=== PATIENT | female | born 1955 | race Caucasian/White ===

== ENCOUNTER 2017-05-30 22:33 | Inpatient (IN) | payer MEDICARE ==
[~2017-05-30] VITALS: Ht 175.3 cm; Wt 84.5 kg
[~2017-05-30 22:33] MED LIST: AMBIEN10 MG PO; CELEBREX100 MG PO; CHLORPHENIRAMINE4 MG; CLOBETASOL PROP50 ML TP; CLOTRIMAZOLE-BE15 GM; CYANOCOBAL1000 MCG/1 IJ; CYANOCOBAL1000 MCG/M IM; ENBREL50 MG/1 M1 SQ; ENBREL50 MG/1 ML SQ; ESTRADIOL PO; ESTRADIOL2 MG PO; EVOXAC30 MG PO; FLONASE16 GM; FLOXIN OU; FLUTICASONE PRO16 GM; HYDROCHLOROTHIA25 MG PO; HYDROXYZINE HCL25 MG PO; KEPPRA1000 MG PO; METHOTREXATE PO; METHOTREXATE2.5 MG PO; METRONIDAZOLE TOP; MINOCYCLINE HCL50 MG PO; NEXIUM40 MG PO; NORCO 7.5-3251 EACH PO; PHENERGAN SUPP25 MG PR; PHENYLEPHRINE; PILOCARPINE HCL5 MG PO; PREDNISONE1 MG PO; PREDNISONE5 MG PO; RAMIPRIL5 MG PO; SERTRALINE HCL100 MG PO; TYLENOL WITH C1 EACH PO; VENTOLIN HFA18 GM INH; Z.0.AMBIEN10 MG PO; Z.0.AMLODIPINE BESY1 PO; Z.0.DICYCLOMINE HCL1 PO; Z.0.GABAPENTIN300 MG PO; Z.0.HYDROCHLOROTHIA2 PO; Z.0.NEXIUM40 MG PO; Z.0.PREDNISONE5 M1 PO; Z.0.RAMIPRIL5 MG PO; Z.0.SERTRALINE HCL10 PO; ZYRTEC10 M3 PO
[2017-05-30] MEDS ORDERED: ASPIRIN 325 MG TAB PO ONE (23:45)
[2017-05-31] VITALS: BP 113/63
[2017-05-31] MEDS: MORPHINE SULFATE 2 MG/ML SYR IV PRN ×4 (01:15→18:04)
[2017-05-31 01:23] VITALS: BP 113/63
[2017-05-31 01:55] LABS: CHOL/HDL RATIO 4.1 (3.0-3.6)
[2017-05-31 02:01] LABS: CREATINE KINASE MB 8.3 ng/mL (0-5.0)
[2017-05-31] MEDS ORDERED: PROMETHAZINE 12.5MG/ NACL 0.9% 12.5 MG/50 ML BAG IV PRN (02:45)
[2017-05-31 04:00] VITALS: BP 97/57
[2017-05-31] MEDS: HEPARIN 25,000U/0.45% NS 250ML 25,000 UNIT in SODIUM CHLORIDE 0.9% 250ML 0 ML IV SCH ×3 (04:20→12:30)
[2017-05-31 08:00] VITALS: BP 109/66
[2017-05-31] MEDS ORDERED: PANTOPRAZOLE 40 MG 10ML VIAL IV SCH (09:00)
[2017-05-31] MEDS: ASPIRIN 325 MG TAB PO SCH (09:18)
[2017-05-31 09:48] LABS: CREATINE KINASE MB 10.2 ng/mL (0-5.0)
[2017-05-31] MEDS ORDERED: NITROGLYCERIN 0.4 MG SUBL SL PRN (10:00)
[2017-05-31] MEDS ORDERED: ACETAMINOPHEN 325 MG TAB PO PRN (10:00)
[2017-05-31] MEDS ORDERED: HYDROCODONE/APAP 5MG-325MG TAB PO PRN (10:00)
[2017-05-31] MEDS ORDERED: RAMIPRIL 5 MG CAP PO SCH (10:30)
[2017-05-31 10:34] LABS: BASOPHILS # (AUTO) 0.1 (0.0-0.1); BASOPHILS % 0.6 % (0.0-1.0); EOSINOPHILS # (AUTO) 0.4 (0.0-0.4); EOSINOPHILS % 4.7 % (0.0-6.0); HEMATOCRIT 34.2 % (34.2-44.1); HEMOGLOBIN 11.2 g/dL (12.0-16.0); LYMPHOCYTES # (AUTO) 5.3 (1.0-3.2); MEAN CORPUSCULAR HEMOGLOBIN 28.7 pg (28-32); MEAN CORPUSCULAR HGB CONC 32.7 g/dL (31-35); MEAN CORPUSCULAR VOLUME 87.7 fL (81-99); MONOCYTES # (AUTO) 0.6 (0.2-0.8); MONOCYTES % 6.5 % (4.4-11.3); NEUTROPHILS % 31.9 % (38.7-80.0); PLATELET COUNT 235 x10e3/uL (140-360); RED CELL DISTRIBUTION WIDTH 14.9 % (11.7-14.4)
[2017-05-31 10:52] LABS: ALANINE AMINOTRANSFERASE 9 IU/L (0-55); ALBUMIN 2.6 g/dL (3.5-5.0); ALBUMIN/GLOBULIN RATIO 0.8 (0.8-2.0); ALKALINE PHOSPHATASE 106 IU/L (40-150); BLOOD UREA NITROGEN 9 mg/dL (7-26); BUN/CREATININE RATIO 11 (6-25); CALCIUM 8.9 mg/dL (8.4-10.2); CARBON DIOXIDE 19 mmol/L (22-29); CHLORIDE 109 mmol/L (98-107); EST GLOMERULAR FILTRATION RATE > 60 ML/MIN (60-); GLUCOSE 97 mg/dL (74-118); SODIUM 139 mmol/L (136-145)
--- NOTE | 2017-05-31 10:54 | Diagnostic Imaging Report ---
EXAMINATION: CHEST SINGLE (PORTABLE) INDICATION: \S\sob \[id number] \S\1000 COMPARISON: Detail including PA chest from 02/18/[address] abdomen and pelvis from 02/18/2016 FINDINGS: AP view TUBES and LINES: None. LUNGS: Lungs are well inflated. Lungs are clear. There is no evidence of pneumonia or pulmonary edema. PLEURA: No pleural effusion or pneumothorax. HEART AND MEDIASTINUM: Stable mild enlargement of the cardiac silhouette. Tortuous thoracic aorta. BONES AND SOFT TISSUES: No acute osseous lesion. Soft tissues are unremarkable. UPPER ABDOMEN: No free air under the diaphragm. IMPRESSION: Mild cardiomegaly without pulmonary decompensation. Signed by: Dr. Michelle Polanco M.D. on 05/31/2017 10:50 AM
[2017-05-31 11:14] LABS: LYMPHOCYTES % (MANUAL) 50 % (19-48); MONOCYTES % (MANUAL) 1 % (3.4-9.0); NEUTROPHILS % (MANUAL) 42 % (40-74)
[2017-05-31 11:15] LABS: ANISOCYTOSIS SLIGHT; PLATELET ESTIMATE ADEQUATE; PLATELET MORPHOLOGY COMMENT NORMAL; RBC MORPHOLOGY COMMENT NORMAL
[2017-05-31 12:00] VITALS: BP 104/51
[2017-05-31] MEDS: ONDANSETRON HCL INJ 2 MG/ML VIAL IV PRN ×2 (12:35→18:04)
--- NOTE | 2017-05-31 15:23 | History and Physical ---
CHIEF COMPLAINT: Chest pain. HISTORY OF PRESENT ILLNESS: This is a 61-year-old female with known history of hypertension who comes in as a direct admission from [facility] due to underlying chest pain that began yesterday morning. The patient reports that her chest pain began yesterday on the right side of the chest wall and radiated to the left chest wall to her left shoulder and arm. She reports the pain was excruciating and sharp in nature, 8/10. She had some associated vomiting and nausea, but denies any diaphoresis. The patient denies any other events. She denies any lightheadedness or dizziness. She reports having chest pain earlier this morning, but no palpitations. The patient reports having left heart catheterization approximately 3-5 years ago and was found to have negative findings and did not need any intervention. She did see Dr. Valentin as her blunger here in [place]. The patient is seen and evaluated at bedside. She is currently doing well. Vital signs are stable. Currently, denies any chest pain, but had chest pain earlier this morning. REVIEW OF SYSTEMS: Pertinent positives: Chest pain substernally with nausea and vomiting. Pertinent negatives: Denies any palpitations. Denies dysuria, hematuria, frequency, urgency, lightheadedness, dizziness, abdominal pain, headache, shortness of breath or any other complaints. The rest of the 14-point review of systems have been reviewed with the patient and are negative. ALLERGIES: PENICILLIN, SULFA, TAPE, XANAX. HOME MEDICATIONS: Protonix 40 mg daily, Promethazine, Altace 5 mg p.o. daily, Ambien 10 mg p.o. at bedtime as needed for sleep. PAST MEDICAL HISTORY: Hypertension, insomnia, hyperlipidemia, GERD. PAST SURGICAL HISTORY: Reports none. FAMILY HISTORY: Hypertension, diabetes. SOCIAL HISTORY: Denies smoking, drugs or any alcohol. Good social support. Lives in [place]. and has children. PHYSICAL EXAMINATION VITAL SIGNS: Temperature 97.7, pulse 72, respiratory rate 18, blood pressure 109/66, pulse oximetry 100% on room air . GENERAL: In no acute distress, alert and oriented x3, cooperative on examination. HEENT: Head is normocephalic, atraumatic. Eyes: Pupils equal, round and reactive to light bilaterally. Extraocular movements intact bilaterally. Throat with no evidence of erythema or exudates in the posterior pharynx. Has poor dentition. NECK: Supple with good range of motion. PULMONARY: Clear to auscultation bilaterally. No wheezing, no rales no rhonchi, no crackles appreciated. CARDIOVASCULAR: Positive S1 and S2, no murmurs, rubs or gallops appreciated. ABDOMEN: Soft, nondistended, nontender on palpation. Bowel sounds were present. MUSCULOSKELETAL: Strength 5/5 throughout, no evidence of musculoskeletal deficit on exam. SKIN: Intact. Warm to touch. Good capillary refill. EXTREMITIES: No edema. Good range of motion throughout. PSYCHIATRIC: Normal affect and mood. LABORATORY DATA: CBC: Has been ordered and pending. Chemistries: Ordered and pending. Coagulation: PTT is 41.7. CK is 160. CK MB 10.2. Troponin 3.1. Triglycerides 221, cholesterol 163, LDL 79, HDL 40. Microbiology: None. IMAGING: The patient had CT brain, noncontrast performed at the outside hospital that showed no acute intracranial findings. Chest x-ray was negative at the outside facility. ASSESSMENT 1. Chest pain, unstable angina with elevated troponin. 2. Hypertension. 3. Hyperlipidemia. 4. Insomnia. PLAN: At this time, she is on a heparin drip, low-dose SHILPA inhibitor, pain control, nitroglycerin p.r.n. Cardiology consultation. Resume same home medications. We are going to trend troponins. EKG is consistent with flipped T waves, likely has a cardiac event. She did have elevated D-dimer at the outside facility. I will order stat labs, CBC and chemistry as well as chest x-ray. If creatinine is stable, will get CT angiogram of the chest, rule out for PE. For prophylaxis, she is on a heparin drip. Will continue with same plan of care. Look at orders. Home medications are reconciled. Will follow cardiology recommendations. The patient will likely need left heart cath, likely will happen on Friday, but will follow cardiology recommendations otherwise. Job#: [id number]
[2017-05-31 20:00] VITALS: BP 108/59
[2017-05-31] MEDS: ATORVASTATIN 40 MG TAB PO SCH (20:57)
[2017-05-31] MEDS: LEVETIRACETAM 500 MG TAB PO SCH (21:22)
[2017-06-01] VITALS (7 sets, daily range): BP systolic 92–115; BP diastolic 51–58
[2017-06-01] MEDS: ZOLPIDEM TARTRATE 10 MG TAB PO PRN (00:15)
[2017-06-01 06:52] LABS: BASOPHILS % 0.6 % (0.0-1.0); EOSINOPHILS # (AUTO) 0.3 (0.0-0.4); EOSINOPHILS % 5.1 % (0.0-6.0); HEMATOCRIT 30.6 % (34.2-44.1); LYMPHOCYTES # (AUTO) 3.7 (1.0-3.2); LYMPHOCYTES % 56.4 % (18.0-39.1); MEAN CORPUSCULAR HEMOGLOBIN 28.3 pg (28-32); MEAN CORPUSCULAR HGB CONC 32.7 g/dL (31-35); MEAN CORPUSCULAR VOLUME 86.7 fL (81-99); MONOCYTES # (AUTO) 0.6 (0.2-0.8); MONOCYTES % 8.5 % (4.4-11.3); NEUTROPHILS # (AUTO) 1.9 (2.1-6.9); NEUTROPHILS % 29.1 % (38.7-80.0); PLATELET COUNT 212 x10e3/uL (140-360); RED BLOOD COUNT 3.53 x10e6/uL (3.6-5.1); RED CELL DISTRIBUTION WIDTH 14.9 % (11.7-14.4)
[2017-06-01 07:12] LABS: ANION GAP 11.3 mmol/L (8-16); BLOOD UREA NITROGEN 9 mg/dL (7-26); BUN/CREATININE RATIO 12 (6-25); CALCIUM 8.7 mg/dL (8.4-10.2); CARBON DIOXIDE 25 mmol/L (22-29); CHLORIDE 105 mmol/L (98-107); CHOL/HDL RATIO 3.5 (3.0-3.6); CHOLESTEROL 132 MD/DL (0-199); CREATININE, SERUM 0.73 mg/dL (0.57-1.11); EST GLOMERULAR FILTRATION RATE > 60 ML/MIN (60-); GLUCOSE 90 mg/dL (74-118); HDL CHOLESTEROL 38 MG/DL (40-60); LDL CHOLESTEROL 68 MG/DL (60-130); POTASSIUM 3.3 mmol/L (3.5-5.1); SODIUM 138 mmol/L (136-145); TRIGLYCERIDES 129 MG/DL (0-149)
[2017-06-01 07:32] LABS: THYROID STIMULATING HORMONE 1.106 uIU/mL (0.350-4.940)
[2017-06-01] MEDS: ASPIRIN 325 MG TAB PO SCH (09:29)
[2017-06-01] MEDS: LEVETIRACETAM 500 MG TAB PO SCH ×2 (09:29→17:22)
[2017-06-01] MEDS: PANTOPRAZOLE SOD 40 MG TABEC PO SCH (09:29)
[2017-06-01] MEDS ORDERED: POTASSIUM CHLORIDE 20 MEQ TAB CR PO NR (10:00)
[2017-06-01] MEDS: KCL 20MEQ/.9 SOD CHL 1,000 ML IV SCH (11:01)
[2017-06-01] MEDS: MORPHINE SULFATE 2 MG/ML SYR IV PRN (11:02)
[2017-06-01] MEDS: ONDANSETRON HCL INJ 2 MG/ML VIAL IV PRN (11:02)
[2017-06-01] MEDS: HEPARIN 25,000U/0.45% NS 250ML 25,000 UNIT in SODIUM CHLORIDE 0.9% 250ML 0 ML IV SCH (12:30)
[2017-06-01] MEDS ORDERED: HYDRALAZINE HCL 20 MG/ML VIAL IV PRN (14:30)
[2017-06-01] MEDS ORDERED: METOPROLOL TARTRATE INJ 1 MG/ML VIAL IV PRN (14:30)
[2017-06-01] MEDS ORDERED: NITROGLYCERIN 0.4 MG SUBL SL PRN (14:30)
[2017-06-01 17:12] LABS: PHOSPHORUS 3.8 MG/DL (2.3-4.7)
[2017-06-01] MEDS ORDERED: MAGNESIUM SULFATE 2GM/50ML 100 ML IV NR (18:30)
[2017-06-01 19:17] LABS: ALBUMIN 2.6 g/dL (3.5-5.0); ALBUMIN/GLOBULIN RATIO 0.8 (0.8-2.0); ALKALINE PHOSPHATASE 106 IU/L (40-150); ANION GAP 16.6 mmol/L (8-16); BLOOD UREA NITROGEN 9 mg/dL (7-26); BUN/CREATININE RATIO 11 (6-25); CALCIUM 8.6 mg/dL (8.4-10.2); CARBON DIOXIDE 17 mmol/L (22-29); CHLORIDE 107 mmol/L (98-107); CREATININE, SERUM 0.79 mg/dL (0.57-1.11); EST GLOMERULAR FILTRATION RATE > 60 ML/MIN (60-); GLUCOSE 102 mg/dL (74-118); POTASSIUM 3.6 mmol/L (3.5-5.1); SODIUM 137 mmol/L (136-145)
--- NOTE | 2017-06-01 19:23 | Diagnostic Imaging Report ---
History:Slurred speech Comparison studies:None Technique: Axial images were obtained from the skull base to the vertex. Coronal and sagittal images reconstructed from the axial data. Intravenous contrast: None Findings: Scalp/skull: No abnormalities. Extra-axial spaces: No masses. No fluid collections. Brain sulci: Mildly prominent. Ventricles: Mild compensatory dilatation. No hydrocephalus. Parenchyma: Ill-defined hypodensities in the supratentorial white matter are small vessel ischemic changes. No masses, hemorrhage, acute or chronic cortical vascular insults. Sellar/suprasellar region: No abnormalities. Craniocervical junction: Patent foramen magnum. No Chiari one malformation. Incidental findings: Atherosclerotic calcifications in the carotid siphons . Impression: No acute abnormalities. Chronic findings: 1. Mild generalized volume loss. 2. Mild supratentorial white matter small vessel ischemic changes. Signed by: Dr. Shilo Roach M.D. on 06/01/2017 7:19 PM
[2017-06-01 19:24] LABS: ALANINE AMINOTRANSFERASE < 6 IU/L (0-55)
[2017-06-01] MEDS: ATORVASTATIN 40 MG TAB PO SCH (21:35)
[2017-06-01 22:01] LABS: HEMATOCRIT 31.8 % (34.2-44.1); HEMOGLOBIN 10.4 g/dL (12.0-16.0); MEAN CORPUSCULAR HEMOGLOBIN 28.2 pg (28-32); MEAN CORPUSCULAR HGB CONC 32.7 g/dL (31-35); MEAN CORPUSCULAR VOLUME 86.2 fL (81-99); PLATELET COUNT 214 x10e3/uL (140-360); RED BLOOD COUNT 3.69 x10e6/uL (3.6-5.1); RED CELL DISTRIBUTION WIDTH 14.9 % (11.7-14.4)
[2017-06-02] VITALS (8 sets, daily range): BP systolic 99–121; BP diastolic 52–84
[2017-06-02] MEDS: KCL 20MEQ/.9 SOD CHL 1,000 ML IV SCH ×2 (00:40→12:55)
[2017-06-02] MEDS: MORPHINE SULFATE 2 MG/ML SYR IV PRN ×6 (00:41→23:18)
[2017-06-02] MEDS: ZOLPIDEM TARTRATE 10 MG TAB PO PRN ×2 (01:10→23:17)
[2017-06-02] MEDS: LEVETIRACETAM 500 MG TAB PO SCH ×2 (09:00→16:36)
[2017-06-02] MEDS: PANTOPRAZOLE SOD 40 MG TABEC PO SCH (09:00)
[2017-06-02] MEDS: ASPIRIN 325 MG TAB PO SCH (09:00)
[2017-06-02] MEDS: HEPARIN 25,000U/0.45% NS 250ML 25,000 UNIT in SODIUM CHLORIDE 0.9% 250ML 0 ML IV SCH (12:30)
[2017-06-02] MEDS ORDERED: LIDOCAINE HCL 2% LOCAL 20 ML VIAL ONE ×2 (12:52→14:09)
[2017-06-02] MEDS ORDERED: IOPAMIDOL 370 MG/ML 200 ML INFUS..BTL INJ ONE (12:52)
[2017-06-02] MEDS ORDERED: HEPARIN SOD/SOD CHLORIDE 2,000 ML ONE (12:52)
[2017-06-02] MEDS ORDERED: FENTANYL CITRATE/PF 100MCG/2 ML INJ ONE (14:10)
[2017-06-02] MEDS ORDERED: SODIUM CHLORIDE 0.9% 1000ML 1,000 ML ONE (14:11)
[2017-06-02] MEDS ORDERED: MIDAZOLAM HCL 2 MG/2 ML VIAL ONE (14:11)
--- NOTE | 2017-06-02 16:36 | Operative Report ---
DATE OF PROCEDURE: PROCEDURES 1. Left heart catheterization. 2. Selective coronary angiogram. 3. Left ventriculogram. INDICATION: Non-ST elevation IA. ANESTHESIA: 2% lidocaine for local anesthesia and 1 mg of Versed and 25 mcg of fentanyl for conscious sedation. BLOOD LOSS: 2 mL. DESCRIPTION OF PROCEDURE: After informed consent, the patient was brought to the cardiac catheterization laboratory and placed on the table. Both groins were painted and draped in a sterile fashion. Lidocaine was injected in the right groin for local anesthesia. Right femoral artery was accessed by Seldinger technique and a 5-Wallisian sheath was placed in the right femoral artery. Left main artery was cannulated using a JL4 5-Wallisian catheter. Coronary angiogram was performed and images obtained in multiple views. Right coronary artery was cannulated using a 3DRC 5-Wallisian catheter. Coronary angiogram was performed and images were obtained in multiple views. LV gram was performed using a pigtail catheter. Patient tolerated the procedure without any complications. REPORT Left main: Normal caliber and no significant stenosis noted. Left anterior descending: Normal caliber and no significant stenosis noted. Left circumflex: Normal caliber, is nondominant vessel, and has no luminal irregularities. Right coronary artery: Large caliber, dominant vessel, no significant stenosis noted. LV gram: Overall, normal LV function. Ejection fraction was about 60%. Morphology of the left ventricle looks more like Takotsubo. Hemodynamics: Aortic pressure is 116/58. LV pressure is 125/70. LVEDP is 20. PLAN: Medical management. Job#: [id number] VAS
[2017-06-02] MEDS ORDERED: ALPRAZOLAM 0.5 MG TAB PO ONE (17:00)
[2017-06-02] MEDS ORDERED: LORAZEPAM INJ 2 MG/ML VIAL IV ONE (17:15)
--- NOTE | 2017-06-02 18:58 | Diagnostic Imaging Report ---
EXAM: VENTILATION PERFUSION LUNG SCAN INDICATION: 62 F with elevated D-dimer, NSTEMI, chest pain, spinal fusion 2 weeks ago. COMPARISON: Chest radiograph 05/31/2017 DISCUSSION: Xenon-133 gas 13 mCi was administered via inhalation. Dynamic images of the lungs in the posterior projection were obtained through single breath and washout phases. Distribution of tracer activity is mildly irregular throughout the lungs. Washout is diffusely delayed without evidence of air trapping. Perfusion images of the lungs in multiple projections were obtained following intravenous administration of 6.6 mCi of Tc-99m MAA. Distribution of tracer is mildly irregular throughout the lungs. There are no segmental perfusion defects of any size. The contours of the lungs are well demarcated. The cardiac silhouette is unremarkable. IMPRESSION: 1. Scan findings represent a VERY LOW probability for acute pulmonary embolic disease based on the PIOPED II criteria. 2. Scan findings are compatible with diffuse parenchymal and/or obstructive lung disease. Signed by: Dr. Bozena Walsh M.D. on 06/02/2017 6:54 PM
[2017-06-02] MEDS: ATORVASTATIN 40 MG TAB PO SCH (22:07)
[2017-06-03] VITALS (8 sets, daily range): BP systolic 101–132; BP diastolic 52–68
[2017-06-03] MEDS: KCL 20MEQ/.9 SOD CHL 1,000 ML IV SCH (02:07)
[2017-06-03] MEDS: MORPHINE SULFATE 2 MG/ML SYR IV PRN (03:29)
[2017-06-03] MEDS: ONDANSETRON HCL INJ 2 MG/ML VIAL IV PRN (03:30)
[2017-06-03 06:55] LABS: BASOPHILS % 0.4 % (0.0-1.0); EOSINOPHILS # (AUTO) 0.4 (0.0-0.4); EOSINOPHILS % 6.6 % (0.0-6.0); HEMATOCRIT 30.4 % (34.2-44.1); HEMOGLOBIN 9.7 g/dL (12.0-16.0); LYMPHOCYTES # (AUTO) 3.6 (1.0-3.2); LYMPHOCYTES % 54.3 % (18.0-39.1); MEAN CORPUSCULAR HEMOGLOBIN 28.4 pg (28-32); MEAN CORPUSCULAR HGB CONC 31.9 g/dL (31-35); MEAN CORPUSCULAR VOLUME 88.9 fL (81-99); MONOCYTES # (AUTO) 0.5 (0.2-0.8); MONOCYTES % 6.9 % (4.4-11.3); NEUTROPHILS # (AUTO) 2.1 (2.1-6.9); NEUTROPHILS % 31.7 % (38.7-80.0); PLATELET COUNT 228 x10e3/uL (140-360); RED BLOOD COUNT 3.42 x10e6/uL (3.6-5.1); RED CELL DISTRIBUTION WIDTH 15.2 % (11.7-14.4)
[2017-06-03 07:15] LABS: ANION GAP 13.8 mmol/L (8-16); BLOOD UREA NITROGEN 5 mg/dL (7-26); BUN/CREATININE RATIO 7 (6-25); CALCIUM 8.8 mg/dL (8.4-10.2); CARBON DIOXIDE 20 mmol/L (22-29); CHLORIDE 112 mmol/L (98-107); CREATININE, SERUM 0.68 mg/dL (0.57-1.11); EST GLOMERULAR FILTRATION RATE > 60 ML/MIN (60-); GLUCOSE 87 mg/dL (74-118); POTASSIUM 3.8 mmol/L (3.5-5.1); SODIUM 142 mmol/L (136-145)
[2017-06-03] MEDS: ASPIRIN 325 MG TAB PO SCH (08:40)
[2017-06-03] MEDS: LEVETIRACETAM 500 MG TAB PO SCH ×2 (08:40→17:07)
[2017-06-03] MEDS: PANTOPRAZOLE SOD 40 MG TABEC PO SCH (08:40)
[2017-06-03] MEDS: ACETAMINOPHEN/CODEINE 300MG - 30MG TAB PO PRN ×3 (10:16→20:02)
[2017-06-03] MEDS: ATORVASTATIN 40 MG TAB PO SCH (20:02)
[2017-06-04 00:12] VITALS: BP 119/57
[2017-06-04] MEDS: ZOLPIDEM TARTRATE 10 MG TAB PO PRN (00:27)
[2017-06-04] MEDS: ACETAMINOPHEN/CODEINE 300MG - 30MG TAB PO PRN ×2 (01:40→08:30)
[2017-06-04 05:11] VITALS: BP 94/51
[2017-06-04 07:30] VITALS: BP 105/57
[2017-06-04 08:04] VITALS: BP 105/57
[2017-06-04] MEDS: PANTOPRAZOLE SOD 40 MG TABEC PO SCH (08:30)
[2017-06-04] MEDS: LEVETIRACETAM 500 MG TAB PO SCH (08:30)
[2017-06-04] MEDS: ASPIRIN 325 MG TAB PO SCH (08:30)
--- NOTE | 2017-06-04 09:58 | Discharge Summary ---
FINAL DISCHARGE DIAGNOSES 1. [id number] elevation myocardial infarction, status post left heart cath with no intervention needed. Recommended medical management. 2. Hypertension. 3. Hyperlipidemia. 4. Sjogren's syndrome. 5. Takotsubo heart. CONSULTANTS: Neurology and cardiology. VITAL SIGNS: Temperature is 96.5, pulse 55, respiratory rate is 16, BP 105/57, pulse ox 99% on room air. LAB FINDINGS: Show white count is 6.6, hemoglobin 9.7, hematocrit is 30, platelets of 228,000. Chemistry: Sodium 1402, potassium 3.8, chloride 112, bicarb 20, anion gap of 13, BUN is 5, creatinine 0.6, glucose is 87. A1c is 4.9. Uric acid 7.5. Calcium is 8.8. Phosphorus 3.8. LFTs were normal. Total protein 5.7. Her LDL cholesterol was 68. TSH was 1.1. IMAGING STUDIES: Chest x-ray showed some mild cardiomegaly without any pulmonary decompensation. CT of brain showed no acute abnormalities. V/Q scan represents a very low probability for acute pulmonary embolic disease. There was some evidence of some compatible with diffuse parenchymal and/or obstructive lung disease. Otherwise, negative for any PE. MRI unable to perform as the machine was not available and was not working while she was here. HOSPITAL COURSE: This is a 62-year-old female who came in from an outside ER due to chest pain, and found have elevated troponin, as well as D-dimer. Patient had a V/Q scan and the patient was transferred here for higher level of care. The patient had a V/Q scan and found to be low probability for any PE. While here, the patient was on heparin drip, aspirin and cardioprotective meds. Cardiology was consulted. Patient had a left heart cath performed on June 02, 2017, that showed normal coronaries and no intervention was needed, and which she had an EF of 60%. It was felt based on his report that the morphology of the left ventricle looks more like Takotsubo's and only recommended medical management at this time. Patient was then stopped on heparin drip and continued on cardioprotective meds per cardiology recommendations. Patient was cleared by cardiology. While in the hospital, the patient did develop a rapid response. There was some concern of her fingers looking kind of white in appearance with some vasoconstriction, and also had an episode where it seems that she had vasovagal while she was on the toilet. Patient had a stat CT brain which was negative. Neurology was consulted and recommended MRI of the brain. At this time, the MRI machine was not available and was not working, and unsure when the availability of the machine will be functional. At this time, the family agreed to be discharged home and follow with Dr. Davis, neurology, as an outpatient and arrange it as an outpatient at that time. Neurology also cleared the patient for discharge home. On discharge, she had no more symptoms of her fingers being white or any kind of abnormalities neurologically. Patient was cleared by neurology for discharge home. On the day of discharge, vital signs stable, labs reviewed and stable. The patient was seen, evaluated and examined thoroughly on the day of discharge. No other complaints. Patient verbalized understanding and agrees with plan of care to follow up with neurology, as well as cardiology in the next 1-2 weeks. Also, follow with her PCP in 1 week. MEDICATIONS: See med reconciliation form includin. Aspirin 81 mg daily 1 tab p.o. daily. 2. Lipitor 40 mg 1 tab p.o. daily. DISPOSITION: To home. CONDITION: Stable. DIET: Heart-healthy. 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 In the event of any worsening symptoms, the patient was advised to come back to the ED for further evaluation. Discharge summary took greater than 35 minutes. KEYLA SPENCER MD Job#: [id number] [place]
--- NOTE | 2017-06-04 11:24 | Consultation ---
DATE OF CONSULTATION: June 02, 2017 at 5 p.m. NEUROLOGICAL CONSULTATION REASON FOR CONSULTATION: Paleness, coldness of fingers of both hands associated with some slurred speech. This has been going on for the last couple of months on an off and on basis. The patient was brought to the emergency room because of chest pain. In the ER, the evaluation showed the troponin level was elevated. D-dimer was elevated. There were some changes in electrocardiogram that were compatible with infarction. The patient was seen by cardiology, Dr. Barrios, who performed cardiac catheterization. Apparently, there was not any significant blockage. The patient, as stated, has been lately having episode of swollen fingers and became pale, both hands cold associated with some confusion and associated with slurred speech and mild headache. She underwent just recently lumbar fusion and still with chronic pain, but doing better. PAST MEDICAL HISTORY: Hypertension, hyperlipidemia, iron deficiency, anemia, B12 deficiency, rheumatoid arthritis. MEDICATIONS: List of medications has been reviewed. PAST SURGICAL HISTORY: Cervical anterior fusion, hysterectomy, knee surgery and recent lumbar fusion. ALLERGIES: PENICILLIN, XANAX, SULFA. REVIEW OF SYSTEMS: All 12 steps negative, except for what is described above. PHYSICAL EXAMINATION VITAL SIGNS: Blood pressure 121/57, pulse 58, temperature afebrile. LUNGS: Clear to auscultation. HEART: Regular sinus rhythm with no murmurs. ABDOMEN: Soft and nontender. No organomegaly. MUSCULOSKELETAL: Lower extremities with no edema or cyanosis, no clubbing. There is paleness of the fingers of both hands and a little bit cold. Radial pulses are normal bilaterally. NEURO: She is alert, oriented x3. Speech is clear. No dysarthria or dysphagia at the present time. Cranial nerves: Pupils are both equal and reactive. Extraocular movements were full. Visual field was normal. No facial weakness. Facial sensation normal. Tongue protrudes midline. Motor power: Upper and lower extremities show no evidence of muscle wasting. Abduction of the arm 5/5. Flexion, extension both arms 5/5. Dorsiflexion of both wrists 5/5. Finger extension 5/5 bilaterally. Hand project hire 5/5 bilaterally. Lower extremities: No right leg examination because the patient just had a cardiac cath and recommend not to move the right leg. There is no evidence of gross weakness in either proximal or distal muscles of both lower extremities. Plantar stimulation down bilaterally. Radial pulses are normal. Femoral pulses normal. Gait was deferred. HEAD: Normocephalic. NECK: Supple. Normal range of motion. Carotid pulsations were present bilaterally. There were no bruits. IMPRESSION 1. Chest pain, coronary artery disease, myocardial infarction. 2. Essential hypertension. 3. Hyperlipidemia. 4. Slurred speech, unspecified. 5. Fingers of both hands cold, pale, etiology undetermined, rule out collagen disease. RECOMMENDATIONS: The patient has been scheduled for MRI of the brain without contrast, but has not been able to do that, so it is going to be done on the following day with Ativan 1-2 mg IV. Also, the patient has history of seizures, generalized tonic/clonic type for a while and she is taking 1000 mg twice a day. Job#: [id number] BRENDA
[2017-06-04 11:40] VITALS: BP 115/57
== END 2017-06-04 11:54 | disposition home or self-care (01) | DRG 281 ==
LOC: MED/SURG3 22:33
PROVIDERS: ADMIT Internal Medicine; ATTEND Internal Medicine
PROC: 4A023N7 Measurement of Cardiac Sampling and Pressure, Left Heart, Percutaneous Approach (ICD-10-PCS; principal; 2017-06-02)
PROC: B2111ZZ Fluoroscopy of Multiple Coronary Arteries using Low Osmolar Contrast (ICD-10-PCS; 2017-06-02)
PROC: B2151ZZ Fluoroscopy of Left Heart using Low Osmolar Contrast (ICD-10-PCS; 2017-06-02)
DX: I21.4 Non-ST elevation (NSTEMI) myocardial infarction (principal); I51.81 Takotsubo syndrome; E53.8 Deficiency of other specified B group vitamins; I10 Essential (primary) hypertension; E87.6 Hypokalemia; E83.42 Hypomagnesemia; E78.5 Hyperlipidemia, unspecified; D50.9 Iron deficiency anemia, unspecified; Z98.1 Arthrodesis status; R55 Syncope and collapse; M35.00 Sjogren syndrome, unspecified; R47.81 Slurred speech; G47.00 Insomnia, unspecified; K21.9 Gastro-esophageal reflux disease without esophagitis; I73.00 Raynaud's syndrome without gangrene; Z88.0 Allergy status to penicillin; Z88.2 Allergy status to sulfonamides; Z88.8 Allergy status to other drugs, medicaments and biological substances; Z91.048 Other nonmedicinal substance allergy status
CPT/HCPCS: 36140; 36415; 70450; 71045; 77002; 78582; 80048; 80053; 80061; 82306; 82550; 82553; 82948; 83036; 83735; 84100; 84443; 84484; 84550; 85007; 85025; 85027; 85651; 85730; 93005; 93306; A9540; A9558; J1644; J2001; J2250; J2270; J2405; J7030; J7050; Q9967

== ENCOUNTER 2017-08-04 14:16 | Inpatient (IN) | payer MEDICARE, OTHER ==
[~2017-08-04] VITALS: Ht 175.3 cm; Wt 78.9 kg
--- OUTSIDE RECORDS SUMMARY | 2017-08-04 14:19 | XMS REPORT | Continuity of Care Document ---
Author Author [facility] Organization [facility] Address [address] [place] [place] [address] Phone Unavailable Care Team Providers Care Fingerprint Classifier Name Role Phone SEVERINO BAZAN (NON STAFF) PCP Insurance Providers Guarantor Linsey Palacios Address [address] [place] [address] CELL Email [email or web address] Payer [employer] Policy Number [id number] Subscriber's Name Linsey Palacios Relationship 18 Self / Same As Patient Group Number [id number] Group Name RETIRED Effective Date 15 Payer Aetna Pos Policy Number [id number] Subscriber's Name Grover Castillo Relationship 01 Group Number [id number] Group Name [facility] Effective Date 03 Advance Directives Directive Response Recorded Date/Time Does the patient have an advance directive? No 05/31/17 3:56am If yes, is advance directive on file with [facility]? No 03/03/18 3:56am If not on file with [facility] will patient provide a copy? Yes 05/31/17 3:56am Do you have a Directive to Physician? No 05/30/17 10:30pm Do you have a Medical Power of Training Personnel Supervisor? No 05/30/17 10:30pm Do you have an out of hospital Do Not Resuscitate Order? No 05/30/17 10:30pm Do you have any special needs we should be aware of? No 05/30/17 10:30pm Do you have a support person here with you today? No 05/30/17 10:30pm Did patient receive Notice of Privacy Practices? Yes 05/30/17 10:30pm Did patient receive patient rights and responsibilities? Yes 05/30/17 10:30pm Problems No problem information available. Medications Current Home Medications Medication Dose Units Route Directions Days Qty Instructions Start Date Cevimeline Hcl (Evoxac) 30 Mg Capsule 30 Mg Oral Three Times A Day Cyanocobalamin (Cyanocobalamin Injection) 1,000 Mcg/Ml Soln 1,000 Mcg Intramusc Every Friday Esomeprazole Magnesium (Nexium) 40 Mg Capsule.dr 40 Mg Oral Daily PROTONIX THERAPEUTIC SUBSTITUTE FOR NEXIUM PER [facility] Estradiol 2 Mg Tablet 2 Mg Oral Daily Levetiracetam (Keppra) 1,000 Mg Tablet 1,000 Mg Oral Twice A Day Metronidazole Lotion 0.75 % Topically Twice A Day Pilocarpine Hcl 5 Mg Tablet 5 Mg Oral Three Times A Day Promethazine Hcl (Phenergan Supp*) 25 Mg Supp 25 Mg Rectal Every 6 Hours as needed for Nausea And Vomiting Ramipril 5 Mg Capsule 5 Mg Oral Daily Zolpidem Tartrate (Ambien) 10 Mg Tablet 10 Mg Oral At Bedtime Past Home Medications Medication Directions Ordered Status Acetaminophen With Codeine (Tylenol With Codeine #3 Tablet) 1 Each Tablet, 300 Mg Oral Every 6 Hours as needed for Pain Discontinued Albuterol Sulfate (Ventolin Hfa) 18 Gm Hfa.aer.ad, 2 Inh Inhalation Every 4 Hours as needed for Shortness Of Breath Discontinued Amlodipine Besylate 10 Mg Tablet, 10 Mg Oral Daily Discontinued Celecoxib (Celebrex*) 100 Mg Capsule, 200 Mg Oral Daily Discontinued Clobetasol Propionate 50 Ml Solution, 1 Dose Topical Twice A Day Discontinued Dicyclomine Hcl 10 Mg Capsule, 10 Mg Oral Before Meals Discontinued Etanercept (Enbrel) 50 Mg/1 Ml Pen.injctr, 50 Mg Sub-Q .tuesdays Discontinued Fluticasone Propionate 16 Gm [place].susp, 1 Dose Nasal Daily Discontinued Gabapentin 300 Mg Capsule, 300 Mg Oral Three Times A Day Discontinued Hydrochlorothiazide 25 Mg Tablet, 25 Mg Oral Daily Discontinued Hydroxyzine Hcl 25 Mg Tablet, 25 Mg Oral Every 6 Hours as needed for Itching Discontinued Methotrexate Sodium (Methotrexate) 2.5 Mg Tablet, 5 Mg Oral .every Friday Discontinued Minocycline Hcl 50 Mg Capsule, 100 Mg Oral Twice A Day Discontinued Prednisone 5 Mg Tablet, 5 Mg Oral Daily Discontinued Sertraline Hcl 100 Mg Tablet, 100 Mg Oral At Bedtime Discontinued Social History Social History Problem Response Recorded Date/Time Onset Date Status Hx Psychiatric Problems No 05/31/2017 3:56am Not Applicable Not Applicable Hx Eating Disorder No 05/31/2017 3:56am Not Applicable Not Applicable Hx Substance Use Disorder No 05/31/2017 3:56am Not Applicable Not Applicable Hx Depression No 05/31/2017 3:56am Not Applicable Not Applicable Hx Alcohol Use No 05/31/2017 3:56am Not Applicable Not Applicable Hx Substance Use Treatment No 05/31/2017 3:56am Not Applicable Not Applicable Hx Physical Abuse No 05/31/2017 3:56am Not Applicable Not Applicable Smoking Status Start Date Stop Date Never Smoker Hospital Discharge Instructions No hospital discharge instruction information available. Plan of Care Discharge Date 06/04/17 11:54am Disposition HOME, SELF-CARE Instructions/Education Provided Chest Pain - Chest Wall Prescriptions See Medication Section Referrals MONIQUE CAZARES MD (Neurology) Order Date: 1 Week Entered Date: 06/04/2017 10:56am Address: [address] [place] [address] [address] [place] [address] SEVERINO ELIZONDO MD (Cardiology) Order Date: 1 Week Entered Date: 06/04/2017 11:05am Address: [address] [place] [address] [address] [place] [address] Functional Status Query Response Date Recorded Assistive Devices None May 31, 2017 1:23am Ambulation Ability Standby Assistance May 31, 2017 1:23am Toileting Ability Minimum Assistance June 03, 2017 6:41pm Allergies, Adverse Reactions, Alerts Allergen Type Severity Reaction Status Last Updated Penicillin Allergy Severe ANAPHYLACTIC SHOCK Active 08/12/11 Sulfa (Sulfonamide Antibiotics) Allergy Unknown REDNESS, PEELING Active Alprazolam Allergy Unknown ALTERED MENTAL STATUS Active 02/18/16 TAPE Allergy Intermediate Active 02/18/16 Immunizations No immunization information available. Vital Signs Acute Vital Signs Vital Response Date/Time Temperature (Fahrenheit) 97.9 degrees F (97.6 - 99.5) 06/04/2017 11:40am Pulse Pulse Rate (adult) 63 bpm (60 - 90) 06/04/2017 11:40am Respiratory Rate 16 bpm (12 - 24) 06/04/2017 11:40am Blood Pressure 115/57 mm Hg 06/04/2017 11:40am Height 5 ft 9 in 05/31/2017 2:47am Weight 186.25 lb 06/02/2017 5:23am Body Mass Index 27.5 kg/m^2 06/02/2017 5:23am Results Laboratory Results Test Name Result Units Flags Reference Collection Date/Time Result Date/ Time Comments White Blood Count 6.69 x10e3/uL 4.8-10.8 06/03/2017 6:27am 06/03/2017 7 :02am Red Blood Count 3.42 x10e6/uL L 3.6-5.1 06/03/2017 6:27am 06/03/2017 7: 02am Hemoglobin 9.7 g/dL L 12.0-16.0 06/03/2017 6:27am 06/03/2017 7:02am Hematocrit 30.4 % L 34.2-44.1 06/03/2017 6:27am 06/03/2017 7:02am Mean Corpuscular Volume 88.9 fL 81-99 06/03/2017 6:27am 06/03/2017 7: 02am Mean Corpuscular Hemoglobin 28.4 pg 28-32 06/03/2017 6:27am 06/03/2017 7:02am Mean Corpuscular Hemoglobin Concent 31.9 g/dL 31-35 06/03/2017 6:27am 06/03/2017 7:02am Red Cell Distribution Width 15.2 % H 11.7-14.4 06/03/2017 6:27am 2017 7:02am Platelet Count 228 x10e3/uL 140-360 06/03/2017 6:27am 06/03/2017 7: 02am Neutrophils (%) (Auto) 31.7 % L 38.7-80.0 06/03/2017 6:am 06/03/2017 7 :02am Lymphocytes (%) (Auto) 54.3 % H 18.0-39.1 06/03/2017 6:am 06/03/2017 7 :02am Monocytes (%) (Auto) 6.9 % 4.4-11.3 06/03/2017 6:am 06/03/2017 7: 02am Eosinophils (%) (Auto) 6.6 % H 0.0-6.0 06/03/2017 6:am 06/03/2017 7: 02am Basophils (%) (Auto) 0.4 % 0.0-1.0 06/03/2017 6:06/03/2017 7:02am IM GRANULOCYTES % 0.1 % 0.0-1.0 06/03/2017 6:06/03/2017 7:02am Neutrophils # (Auto) 2.1 2.1-6.9 06/03/2017 6:am 06/03/2017 7:02am Lymphocytes # (Auto) 3.6 H 1.0-3.2 06/03/2017 6:am 06/03/2017 7: 02am Monocytes # (Auto) 0.5 0.2-0.8 06/03/2017 6:am 06/03/2017 7:02am Eosinophils # (Auto) 0.4 0.0-0.4 06/03/2017 6:am 06/03/2017 7:02am Basophils # (Auto) 0.0 0.0-0.1 06/03/2017 6:am 06/03/2017 7:02am Absolute Immature Granulocyte (auto 0.01 x10e3/uL 0-0.1 06/03/2017 6: 06/03/2017 7:02am Differential Total Cells Counted 100 05/31/2017 10:25am 05/31/2017 11:15am Neutrophils % (Manual) 42 % 40-74 05/31/2017 10:25am 05/31/2017 11: 15am Lymphocytes % (Manual) 50 % H 19-48 05/31/2017 10:25am 05/31/2017 11: 15am Monocytes % (Manual) 1 % L 3.4-9.0 05/31/2017 10:25am 05/31/2017 11: 15am Reactive Lymphocytes 7 05/31/2017 10:25am 05/31/2017 11:15am Platelet Estimate ADEQUATE 05/31/2017 10:25am 05/31/2017 11:15am Platelet Morphology Comment NORMAL 05/31/2017 10:25am 05/31/2017 11 :15am Anisocytosis SLIGHT 05/31/2017 10:25am 05/31/2017 11:15am Red Cell Morphology Comment NORMAL 05/31/2017 10:25am 05/31/2017 11 :15am Erythrocyte Sedimentation Rate 14 mm/hr 0-20 2017 4:40pm 2017 6:12pm Activated Partial Thromboplast Time 64.2 seconds H 23.8-35.5 2017 6 :45pm 2017 7:30pm Sodium Level 142 mmol/L 136-145 06/03/2017 6:27am 06/03/2017 7:16am Potassium Level 3.8 mmol/L 3.5-5.1 06/03/2017 6:27am 06/03/2017 7:16am Chloride Level 112 mmol/L H 98-107 06/03/2017 6:27am 06/03/2017 7:16am Carbon Dioxide Level 20 mmol/L L 22-29 06/03/2017 6:27am 06/03/2017 7: 16am Anion Gap 13.8 mmol/L 8-16 06/03/2017 6:27am 06/03/2017 7:16am Blood Urea Nitrogen 5 mg/dL L 7-06/03/2017 6:27am 06/03/2017 7:16am Creatinine 0.68 mg/dL 0.57-1.11 06/03/2017 6:27am 06/03/2017 7:16am BUN/Creatinine Ratio 7 6-06/03/2017 6:27am 06/03/2017 7:16am Estimat Glomerular Filtration Rate > 60 ML/MIN 60- 06/03/2017 6:27am 7:16am Ranges were taken from the National Kidney Disease Education Program and the National Kidney Foundation literature. Reference ranges: 60 or greater: Normal 16-59 (for 3 consecutive months): Chronic kidney disease 15 or less: Kidney failure Glucose Level 87 mg/dL 74-118 06/03/2017 6:27am 06/03/2017 7:16am Calcium Level 8.8 mg/dL 8.4-10.2 06/03/2017 6:27am 06/03/2017 7:16am Bedside Glucose 111 mg/dL 70-120 2017 6:21pm 2017 9:48pm Meter ID: [id number] Hemoglobin A1c Percent 4.9 % 4.0-7.0 2017 6:30am 2017 7: 20am Uric Acid 7.5 mg/dL 2.6-8.0 2017 4:40pm 2017 5:40pm Phosphorus Level 3.8 MG/DL 2.3-4.7 2017 4:40pm 2017 5:40pm Magnesium Level 1.0 MG/DL *L 1.3-2.1 2017 4:40pm 2017 5:40pm Results called to OSMAR MASTERS at 1739 on 06/01/17 by Jennifer Nicholas. RB OK. Total Bilirubin 0.3 mg/dL 0.2-1.2 2017 6:45pm 2017 7:24pm Aspartate Amino Transf (AST/SGOT) 25 IU/L 5-34 2017 6:45pm 2017 7:24pm Alanine Aminotransferase (ALT/SGPT) < 6 IU/L 0-55 2017 6:45pm 06/2017 7:24pm Total Protein 5.7 g/dL L 6.5-8.1 2017 6:45pm 2017 7:24pm Albumin 2.6 g/dL L 3.5-5.0 2017 6:45pm 2017 7:24pm Globulin 3.1 g/dL 2.3-3.5 2017 6:45pm 2017 7:24pm Albumin/Globulin Ratio 0.8 0.8-2.0 2017 6:45pm 2017 7: 24pm Alkaline Phosphatase 106 IU/L 40-150 2017 6:45pm 2017 7: 24pm Triglycerides Level 129 MG/DL 0-149 2017 6:30am 2017 7: 20am Cholesterol Level 132 MD/DL 0-199 2017 6:30am 2017 7:20am Less than 200 mg/dL Low Risk 201 - 239 mg/dL Borderline Risk 240 mg/dl and greater High Risk LDL Cholesterol 68 MG/DL 60-130 2017 6:30am 2017 7:20am HDL Cholesterol 38 MG/DL L 40-60 2017 6:30am 2017 7:20am Cholesterol/HDL Ratio 3.5 3.0-3.6 2017 6:30am 2017 7: 20am Creatine Kinase 160 IU/L 29-168 05/31/2017 9:08am 05/31/2017 9:45am Creatine Kinase MB 10.20 ng/mL H 0-5.0 05/31/2017 9:08am 05/31/2017 9: 50am Troponin I 3.196 ng/mL H 0-0.300 05/31/2017 9:08am 05/31/2017 9:50am Elevated result called to GILBERTO SOUTH RN at 0949 on 05/31/17 by Teresa Quintero. Thyroid Stimulating Hormone (TSH) 1.106 uIU/mL 0.350-4.940 2017 6: 30am 2017 7:39am Procedures Procedure Status Date Provider(s) Computed tomography of brain without radiopaque contrast Active 06/01/17 BECCA CUMMINGS MD Magnetic resonance imaging of brain without contrast Active 06/04/17 KEYLA SPENCER MD Encounters Encounter Location Arrival/Admit Date Discharge/Depart Date Attending Provider Discharged Inpatient [facility] 05/30/17 10:33pm 11:54am KEYLA SPENCER MD
--- OUTSIDE RECORDS SUMMARY | 2017-08-04 14:19 | XMS REPORT ---
Author [facility] Address Unknown Phone Unavailable Care Team Providers Care Manager Sales Support Name Role Phone KEYLA SPENCER Unavailable Unavailable Problems This patient has no known problems. Allergies, Adverse Reactions, Alerts This patient has no known allergies or adverse reactions. Medications This patient has no known medications. Results Test Description Test Time Test Comments Text Results Atomic Results Result Comments VQ LUNG SCAN VENT PERFUSION [place] [address] Patient Name: LINSEY CHANCE MR #: [id number] : 1955 Age/Sex: 62/F Req #: [id number] Adm Physician: KEYLA SPENCER MD Ordered by: KEYLA SPENCER MD Report #: [id number] Location: [facility] Room/Bed: [facility] Procedure: [id number] NM/VQ LUNG SCAN VENT PERFUSION Exam Date: Exam Time: REPORT STATUS: Signed EXAM: VENTILATION PERFUSION LUNG SCAN INDICATION: 62 F with elevated D-dimer, NSTEMI, chest pain, spinal fusion 2 weeks ago. COMPARISON: Chest radiograph 05/31/2017 DISCUSSION: Xenon-133 gas 13 mCi was administered via inhalation. Dynamic images of the lungs in the posterior projection were obtained through single breath and washout phases. Distribution of tracer activity is mildly irregular throughout the lungs. Washout is diffusely delayed without evidence of air trapping. Perfusion images of the lungs in multiple projections were obtained following intravenous administration of 6.6 mCi of Tc-99m MAA. Distribution of tracer is mildly irregular throughout the lungs. There are no segmental perfusion defects of any size. The contours of the lungs are well demarcated. The cardiac silhouette is unremarkable. IMPRESSION: 1. Scan findings represent a VERY LOW probability for acute pulmonary embolic disease based on the PIOPED II criteria. 2. Scan findings are compatible with diffuse parenchymal and/or obstructive lung disease. Signed by: Dr. Giulia Walsh M.D. on 06/02/2017 6:54 PM Dictated By: GIULIA WALSH MD 53 Transcribed By: SASHA on 06/02/171853 COPY TO: KEYLA SPENCER MD CT BRAIN WO [place] [address] Patient Name: LINSEY CHANCE MR #: [id number] : 1955 Age/Sex: 62/F Req #: [id number] Adm Physician: KEYLA SPENCER MD Ordered by: BECCA CUMMINGS MD Report #: [id number] Location: [facility] Room/Bed: [facility] _ Procedure: [id number] CT/CT BRAIN WO Exam Date: 06/01/17 Exam Time: 1840 REPORT STATUS: Signed History:Slurred speech Comparison studies:None Technique: Axial images were obtained from the skull base to the vertex. Coronal and sagittal images reconstructed from the axial data. Intravenous contrast: None Findings: Scalp/skull: No abnormalities. Extra-axial spaces: No masses. No fluid collections. Brain sulci: Mildly prominent. Ventricles: Mild compensatory dilatation. No hydrocephalus. Parenchyma: Ill-defined hypodensities in the supratentorial white matter are small vessel ischemic changes. No masses, hemorrhage, acute or chronic cortical vascular insults. Sellar/suprasellar region: No abnormalities. Craniocervical junction: Patent foramen magnum. No Chiari one malformation. Incidental findings: Atherosclerotic calcifications in the carotid siphons . Impression: No acute abnormalities. Chronic findings: 1. Mild generalized volume loss. 2. Mild supratentorial white matter small vessel ischemic changes. Signed by: Dr. Shilo Roach M.D. on 2017 7:19 PM Dictated By : SHILO ROACH MD, MD 18 Transcribed By: SASHA on 06/01/171918 COPY TO: BECCA CUMMINGS MD CHEST SINGLE (PORTABLE) [place] [address] Patient Name: LINSEY CHANCE MR #: [id number] : 1955 Age/Sex: 61/F Req #: [id number] Adm Physician: KATE BARRIENTOS MD Ordered by: KEYLA SPENCER MD Report #: [id number] Location: [facility] Room/Bed: [facility] Procedure: [id number] DX/CHEST SINGLE (PORTABLE) Exam Date: 05/31/17 Exam Time: 1000 REPORT STATUS: Signed EXAMINATION: CHEST SINGLE (PORTABLE) INDICATION: COMPARISON: Detail including PA chest from 02/18/[address] abdomen and pelvis from 02/18/2016 FINDINGS: AP view TUBES and LINES: None. LUNGS: Lungs are well inflated. Lungs are clear. There is no evidence of pneumonia or pulmonary edema. PLEURA: No pleural effusion or pneumothorax. HEART AND MEDIASTINUM: Stable mild enlargement of the cardiac silhouette. Tortuous thoracic aorta. BONES AND SOFT TISSUES: No acute osseous lesion. Soft tissues are unremarkable. UPPER ABDOMEN: No free air under the diaphragm. IMPRESSION: Mild cardiomegaly without pulmonary decompensation. Signed by: Dr. Greg Lyons M.D. on 05/31/2017 10:50 AM Dictated By: GREG LYONS MD 1050 COPY TO: KEYLA SPENCER MD
[2017-08-04] MEDS ORDERED: ONDANSETRON HCL 4 MG ORAL DISINTEGRATING TAB PO ONE (14:30)
[2017-08-04] MEDS ORDERED: MORPHINE SULFATE 4 MG/ML SYR IV PRN (14:30)
[2017-08-04] MEDS ORDERED: MORPHINE SULFATE 2 MG/ML SYR IV ONE (14:45)
[2017-08-04] MEDS ORDERED: ASPIRIN 81 MG CHEW TAB PO ONE (15:00)
[2017-08-04 15:20] LABS: BASOPHILS # (AUTO) 0.1 (0.0-0.1); BASOPHILS % 0.3 % (0.0-1.0); EOSINOPHILS # (AUTO) 0.5 (0.0-0.4); EOSINOPHILS % 2.4 % (0.0-6.0); HEMATOCRIT 38.4 % (34.2-44.1); HEMOGLOBIN 12.2 g/dL (12.0-16.0); LYMPHOCYTES # (AUTO) 8.9 (1.0-3.2); LYMPHOCYTES % 41.7 % (18.0-39.1); MEAN CORPUSCULAR HEMOGLOBIN 27.6 pg (28-32); MEAN CORPUSCULAR HGB CONC 31.8 g/dL (31-35); MEAN CORPUSCULAR VOLUME 86.9 fL (81-99); MONOCYTES # (AUTO) 1.6 (0.2-0.8); MONOCYTES % 7.3 % (4.4-11.3); NEUTROPHILS # (AUTO) 10.1 (2.1-6.9); NEUTROPHILS % 47.6 % (38.7-80.0); PLATELET COUNT 379 x10e3/uL (140-360); RED BLOOD COUNT 4.42 x10e6/uL (3.6-5.1); RED CELL DISTRIBUTION WIDTH 14.1 % (11.7-14.4)
[2017-08-04] MEDS ORDERED: HYDROCHLOROTHIA25 MG PO (15:24)
[2017-08-04 15:27] LABS: INR 0.94; PARTIAL THROMBOPLASTIN TIME 24.1 seconds (23.8-35.5); PROTHROMBIN TIME 11.8 seconds (11.9-14.5)
[2017-08-04 15:40] LABS: ALBUMIN 3.4 g/dL (3.5-5.0); ALBUMIN/GLOBULIN RATIO 0.9 (0.8-2.0); ANION GAP 17.9 mmol/L (8-16); CALCIUM 10.5 mg/dL (8.4-10.2); CREATININE, SERUM 1.23 mg/dL (0.57-1.11); POTASSIUM 3.9 mmol/L (3.5-5.1)
[2017-08-04 15:48] LABS: CREATINE KINASE MB 1.1 ng/mL (0-5.0)
[2017-08-04 16:08] LABS: ELLIPTOCYTE, RBC MODERATE; LYMPHOCYTES % (MANUAL) 48 % (19-48); MONOCYTES % (MANUAL) 4 % (3.4-9.0); NEUTROPHILS % (MANUAL) 45 % (40-74); PLATELET ESTIMATE SLIGHTLY INCREASED; PLATELET MORPHOLOGY COMMENT NORMAL; RBC MORPHOLOGY COMMENT NORMAL; TOXIC GRANULATION SLIGHT
--- NOTE | 2017-08-04 16:42 | Diagnostic Imaging Report ---
PROCEDURE:HIPS BILAT 3-4VWS (+/- PELVIS) INDICATION:Bilateral leg pain. COMPARISON:None. FINDINGS: No evidence of acute displaced fracture or dislocation of the bilateral hips. Partially visualized evidence of lower lumbar spine fusion and discectomy. Pelvic phleboliths. CONCLUSION: No acute fracture or dislocation of the bilateral hips. Dictated by: Yasmani Mejia M.D. on 08/04/2017 at 16:44 Electronically approved by: Yasmani Mejia M.D. on 08/04/2017 at 16:44
--- NOTE | 2017-08-04 16:44 | Diagnostic Imaging Report ---
PROCEDURE: A single AP view of the chest. COMPARISON: 05/31/17 INDICATIONS: BILATERAL LEG PAIN, RECENT SPINAL SURGERY FINDINGS: Lines/tubes: None. Lungs: The lungs are well inflated and clear. There is no evidence of pneumonia or pulmonary edema. Unchanged subcentimeter left lower lung field nodular density, likely a calcified granuloma. Pleura: There is no pleural effusion or pneumothorax. Heart and mediastinum: The heart and the mediastinum are unremarkable. Bones: No acute bony abnormality. IMPRESSION: 1. No acute cardiopulmonary disease. Dictated by: Yasmani Mejia M.D. on 08/04/2017 at 16:45 Electronically approved by: Yasmani Mejia M.D. on 08/04/2017 at 16:45
--- NOTE | 2017-08-04 17:12 | Diagnostic Imaging Report ---
ADDENDUM #1 Posterior and right lateral migration of the bone graft which extends into the inferior aspect of right neural foramen at level L3-L4 (image 30, series 600). Addendum was made after findings were discussed with Dr. Villareal by phone at 9:30 AM on 08/08/2017. Signed by: Dr. Lesley Russo M.D. on 08/08/2017 8:42 PM ORIGINAL REPORT History: 62-year-old female with right leg pain radiating from the hip Comparison studies: CT abdomen pelvis, 02/18/2016 Technique: Axial images were obtained through the lumbar spine . Coronal and sagittal images reconstructed from the axial data. Intravenous contrast: None Findings: The usual 5 non-rib bearing lumbar vertebral bodies are present. Alignment: Leftward curvature of the lumbar spine centered at L2-L3 Soft tissues: No abnormalities. Paraspinal muscles: Fatty atrophy of posterior paraspinal muscles from level L3-S1. Vertebrae: Additional postoperative changes are noted since the February 18, 2016 CT. Specifically, postoperative changes from prior L3 and L4 laminectomies with disc spacers at L3-L4 and L4-L5 and posterior fusion from L3 to L5 with interpedicular screws. No hardware failure is noted. Suboptimal evaluation at this level due to metallic streak artifacts. Degenerative changes: * Small multilevel anterior osteophytes. * Disc bulges are seen from L2 through S1. The spinal canal is not well evaluated on this exam. * Severe degenerative disc space narrowing at T12-L1, with degenerative endplate changes, similar to prior exam. * Grade 1 anterolisthesis of L4 over L5. * Degenerative space narrowing with vacuum phenomenon at L5-S1. * L2-L3: Disc bulge asymmetric to the left in combination with facet arthrosis effaces thecal sac without significant canal stenosis. Moderate right and mild left foraminal stenosis. Sacrum and pelvis: Moderate right and mild left degenerative changes in the sacroiliac joints with decreased joint space, sclerosis and vacuum phenomena. An osseous defect in the left posterior ilium (series 3 image 88) is similar to prior exam, and presumed postoperative in nature. IMPRESSION: 1. Postoperative changes from L3 and L4 laminectomies with posterior fusion from L3 to L5. No hardware failure is identified. No acute fracture or malalignment. 2. Severe degenerative disc space narrowing at T12-L1, similar to prior exam. 3. Grade 1 anterolisthesis of L4 over L5. 4. Leftward curvature of the lumbar spine centered at L2-L3. 5. Ligament, spinal cord and or vascular abnormalities cannot be excluded on the basis of this examination. 6. Moderate right and mild left foraminal stenosis at L2-L3. A preliminary report was given by neuroradiology fellow Dr. Santana at 5:11 PM on 08/04/2017. I have reviewed the images and agree with the findings in the preliminary report. Signed by: Dr. Lesley Russo M.D. on 08/04/2017 7:57 PM
[2017-08-04] MEDS ORDERED: HYDROMORPHONE 1MG/1ML INJ IV STA (17:54)
[2017-08-04] MEDS ORDERED: HYDROMORPHONE 2MG/ML INJ IV NR (18:15)
[2017-08-04] MEDS ORDERED: ONDANSETRON HCL INJ 2 MG/ML VIAL IV PRN (18:15)
--- NOTE | 2017-08-04 18:44 | Diagnostic Imaging Report ---
PROCEDURE:FEMUR TWO VIEW MINIMUM RIGHT COMPARISON:None. INDICATIONS:RECENT LUMBAR SURGERY, PAIN RADIATING DOWN RIGHT LEG. DENIES INJURY FINDINGS: There are no fractures, dislocations, lytic or blastic lesions. The soft-tissues are unremarkable. Degenerative changes of the right knee. CONCLUSION: No acute fracture or dislocation of the right femur. Dictated by: Yasmani Mejia M.D. on 08/04/2017 at 18:46 Electronically approved by: Yasmani Mejia M.D. on 08/04/2017 at 18:46
[2017-08-04 18:53] LABS: BILIRUBIN,URINE NEGATIVE (NEGATIVE); CLARITY,URINE SL CLOUDY (CLEAR); COLOR,URINE YELLOW (YELLOW); KETONES,URINE NEGATIVE (NEGATIVE); LEUKOCYTE ESTERASE ,URINE NEGATIVE (NEGATIVE); NITRITE,URINE NEGATIVE (NEGATIVE); PROTEIN,URINE DIPSTICK TRACE (NEGATIVE); URINE UROBILINOGEN 0.2 mg/dL (0.2 - 1)
[2017-08-04 19:09] LABS: BACTERIA,URINE RARE /HPF; EPITHELIAL CELLS,URINE MODERATE /LPF; RBC,URINE 0-5 /HPF (0-5); WBC,URINE (MAN) 0-5 /HPF (0-5)
[2017-08-04] MEDS: VANCOMYCIN 1GM/NS 250 ML 250 ML IV SCH (20:59)
[2017-08-04] MEDS: SODIUM CHLORIDE 0.9% 1000ML 1,000 ML IV SCH ×2 (20:59→21:08)
[2017-08-04 21:59] VITALS: BP 166/75
[2017-08-04] MEDS: MORPHINE SULFATE 2 MG/ML SYR IV PRN (22:30)
[2017-08-04] MEDS ORDERED: TRAMADOL HCL 50 MG TAB PO PRN (23:15)
[2017-08-04] MEDS ORDERED: HYDROMORPHONE 2MG/ML INJ IV PRN (23:30)
[2017-08-05] VITALS (7 sets, daily range): BP systolic 128–232; BP diastolic 65–142
[2017-08-05] MEDS ORDERED: HYDROMORPHONE 20MG/ NS 100ML IV PRN
[2017-08-05] MEDS ORDERED: ZIPRASIDONE 20 MG VIAL IM ONE (00:15)
[2017-08-05] MEDS ORDERED: HYDROMORPHONE 1MG/1ML INJ IV ONE (00:30)
[2017-08-05] MEDS: MORPHINE SULFATE 2 MG/ML SYR IV PRN (04:03)
[2017-08-05] MEDS: HYDROMORPHONE 2MG/ML INJ IV PRN ×2 (05:07→19:57)
[2017-08-05] MEDS: VANCOMYCIN 1GM/NS 250 ML 250 ML IV SCH ×2 (06:35→18:45)
--- NOTE | 2017-08-05 06:38 | Diagnostic Imaging Report ---
CHEST SINGLE (PORTABLE), 08/05/2017 7:00 AM Technique: CHEST SINGLE (PORTABLE) Comparison: Previous day Clinical history: Elevated white blood cell Findings: Stable appearance of the heart, mediastinum, lungs and pleural spaces. Tortuous descending thoracic aorta. Impression: 1. Lines/Tubes: None 2. No acute abnormality. Signed by: Dr Emmy Quintero MD on 08/05/2017 6:35 AM
[2017-08-05] MEDS: ONDANSETRON HCL 4 MG ORAL DISINTEGRATING TAB PO PRN (06:41)
--- NOTE | 2017-08-05 07:02 | History and Physical ---
PRIMARY CARE PHYSICIAN: Dr. Abdi CHIEF COMPLAINT: Right hip pain. HISTORY OF PRESENT ILLNESS: This is a 62-year-old woman with a history of severe degenerative disk disease, who has undergone multiple surgical management by Dr. Villareal, and now for the past 2 weeks having severe right hip pain. She has been taking hydrocodone at home, but now the pain has worsened. Therefore, she went to her doctor who sent her to the hospital. The patient denies any fever at home. Denies any nausea or vomiting. She describes her pain of the right hip as severe of 10/10, sharp and radiating from the right lower back to the right hip region. This has affected her ability to walk as well. PAST MEDICAL HISTORY: Severe degenerative disk disease, status post surgical management by Dr. Villareal, hypertension, insomnia, hyperlipidemia, GERD, syncope, [id number] AL in May 2017, Sjogren's syndrome, Takotsubo cardiomyopathy. PAST SURGICAL HISTORY: Multiple vertebral disks related surgeries by Dr. Villareal, L3-L4 laminectomy with posterior fusion at L3-L5. ALLERGIES: PER ELECTRONIC MEDICAL RECORD. FAMILY HISTORY: Hypertension and diabetes mellitus. SOCIAL HISTORY: Patient is . She has 7 children. No illicits or cigarettes. Is a retired nurse. MEDICATIONS: Per electronic medical record. REVIEW OF SYSTEMS: Denies any chest pain or shortness of breath. PHYSICAL EXAMINATION VITAL SIGNS: Reviewed. T-max is 97.9, blood pressure as high as 232/142. GENERAL: A tired-appearing woman resting in bed. HEENT: Anicteric. Pupils respond to light. No oral lesions. CARDIOVASCULAR: Normal S1 and S2. LUNGS: She has moderate breath sounds. ABDOMEN: Soft, nontender and nondistended. She has midline surgical scar on the anterior abdominal wall. EXTREMITIES: She has no edema. Right hip is tender to palpation, but no visible lesions on the skin. PSYCHIATRIC: Flat affect. NEUROLOGICAL: Alert and oriented times 3. LABS: Reviewed. MEDICATIONS: Reviewed. ASSESSMENT AND PLAN: A 62-year-old woman with: 1. Severe right hip pain: Imaging showing severe degenerative disk disease at level T12-L1 with areas of moderate stenosis. Consult Dr. Villareal to assist in further evaluation and management. May need further surgical management. Unable to obtain an MRI at this time. 2. Intractable pain: Will use p.r.n. pain medications. Consider pain specialist consultation. 3. Moderate right and mild left foraminal stenosis at L2-L3. 4. Marked leukocytosis: Will continue broad-spectrum antibiotics and follow up cultures. Will consider bone scan versus tagged white blood cells to evaluate for any infection in the right hip or lower backside. 5. Acute kidney injury: Rehydrate and reassess. Will hold SHILPA inhibitor. 6. Dehydration: Rehydrate. 7. Physical deconditioning: Physical therapy consultation. 8. Hypertensive urgency: Treat with medication regimen due to pain. 9. Prophylaxis: Will use heparin and Pepcid. 10. Disposition: Follow up cultures. Consider bone scan. Consult pain specialist. Consult Dr. Villareal for evaluation of the degenerative disk disease. Job#: [id number] MAGDA
[2017-08-05 07:13] LABS: BASOPHILS # (AUTO) 0.1 (0.0-0.1); BASOPHILS % 0.5 % (0.0-1.0); EOSINOPHILS # (AUTO) 0.5 (0.0-0.4); EOSINOPHILS % 4.6 % (0.0-6.0); HEMATOCRIT 33.3 % (34.2-44.1); HEMOGLOBIN 10.4 g/dL (12.0-16.0); LYMPHOCYTES # (AUTO) 5.6 (1.0-3.2); MEAN CORPUSCULAR HEMOGLOBIN 27.7 pg (28-32); MEAN CORPUSCULAR HGB CONC 31.2 g/dL (31-35); MEAN CORPUSCULAR VOLUME 88.6 fL (81-99); MONOCYTES # (AUTO) 0.8 (0.2-0.8); MONOCYTES % 7.6 % (4.4-11.3); NEUTROPHILS # (AUTO) 3.7 (2.1-6.9); NEUTROPHILS % 34.5 % (38.7-80.0); PLATELET COUNT 256 x10e3/uL (140-360); RED BLOOD COUNT 3.76 x10e6/uL (3.6-5.1)
[2017-08-05] MEDS ORDERED: FUROSEMIDE INJ 10 MG/ML 2 ML VIAL IV ONE (07:15)
[2017-08-05 07:35] LABS: ANION GAP 13.5 mmol/L (8-16); CALCIUM 9.2 mg/dL (8.4-10.2); CREATININE, SERUM 1.04 mg/dL (0.57-1.11); POTASSIUM 3.5 mmol/L (3.5-5.1)
[2017-08-05] MEDS ORDERED: GABAPENTIN 100 MG CAP PO PRN (08:45)
[2017-08-05] MEDS ORDERED: FENTANYL 25 MCG/HR PATCH TOP SCH (08:45)
[2017-08-05] MEDS: PANTOPRAZOLE SOD 40 MG TABEC PO SCH (09:00)
[2017-08-05] MEDS: ESTRADIOL 1 MG TAB PO SCH (09:00)
[2017-08-05] MEDS: LEVETIRACETAM 500 MG TAB PO SCH ×2 (09:00→17:00)
[2017-08-05] MEDS: HYDROCHLOROTHIAZIDE 25 MG TAB PO SCH (09:00)
[2017-08-05] MEDS: PILOCARPINE HCL 5 MG PO SCH ×3 (09:00→21:00)
[2017-08-05] MEDS: FAMOTIDINE 20 MG TAB PO SCH ×2 (09:00→16:30)
[2017-08-05] MEDS: HEPARIN SOD (PORCINE) 5,000 UNIT/ML VIAL SC SCH ×2 (09:00→21:50)
[2017-08-05 09:50] LABS: EOSINOPHILS % (MANUAL) 3 % (0-7); LYMPHOCYTES % (MANUAL) 45 % (19-48); MONOCYTES % (MANUAL) 4 % (3.4-9.0); NEUTROPHILS % (MANUAL) 47 % (40-74)
[2017-08-05 09:51] LABS: ANISOCYTOSIS SLIGHT; HYPOCHROMASIA SLIGHT; PLATELET ESTIMATE ADEQUATE; PLATELET MORPHOLOGY COMMENT NORMAL; RBC MORPHOLOGY COMMENT NORMAL
[2017-08-05] MEDS: SODIUM CHLORIDE 0.9% 1000ML 1,000 ML IV SCH ×2 (10:06→18:06)
[2017-08-05] MEDS: HYDROCODONE/APAP 10MG-325MG TAB PO PRN ×2 (11:42→21:48)
[2017-08-05] MEDS ORDERED: GADOBENATE DIMEGLUMINE 1 ML IV ONE (11:48)
[2017-08-05] MEDS: AZTREONAM 1 GM VIAL IV SCH ×2 (13:00→17:00)
[2017-08-05] MEDS ORDERED: AZTREONAM (AZACTAM) 1 GM in WATER STERILE 10ML VIAL 10 ML IV SCH (14:00)
[2017-08-05] MEDS ORDERED: WATER STERILE IV SCH (14:00)
[2017-08-05] MEDS ORDERED: AZTREONAM IV SCH (14:00)
[2017-08-05] MEDS ORDERED: QUETIAPINE FUMARATE 25 MG TAB PO PRN (14:45)
--- NOTE | 2017-08-05 17:59 | Diagnostic Imaging Report ---
PROCEDURE:X-RAY LUMBAR SPINE, TWO VIEWS COMPARISON:None. INDICATIONS:RIGHT HIP PAIN FINDINGS: There are 5 lumbar-type vertebral bodies. Posterior fusion hardware L3-L5 with intrapedicular screws, intervening rods and disc spacers. Orthopedic hardware is intact, without associated lucencies or hardware failure. Mild grade 1 anterolisthesis of L4 on L5 and L4 on L3. No lytic or blastic lesions. No acute displaced fracture or dislocation. Slight leftward curvature of the lumbar spine. Atherosclerotic calcification of the abdominal aorta. No acute bony abnormalities. CONCLUSION: 1. Status post posterior fusion L3-L5 with intact hardware. 2. Mild grade 1 anterolisthesis of L4 on L5 and L4 on L3. 3. Lesser curvature of the lumbar spine. Sanjay Lyons M.D. Dictated by: Sanjay Lyons M.D. on 08/05/2017 at 18:01 Electronically approved by: Sanjay Lyons M.D. on 08/05/2017 at 18:01
--- NOTE | 2017-08-05 19:16 | Diagnostic Imaging Report ---
Bone Scan, three-phase Reason for exam: 63 F with right buttock pain and leukocytosis; had lumbar spine surgery in May and May 2017. Radiopharmaceutical: Tc-99m MDP 27 mCi Comparison: CT lumbar spine 08/04/2017 Following intravenous administration of the radiopharmaceutical, dynamic flow and immediate blood pool images of the lumbar spine, pelvis and hips followed by delayed spot images were obtained. Flow and blood pool images show symmetric distribution of tracer activity to the lower back, pelvis and hips with focal abnormality The delayed images show focal increased tracer in L4 on the right, best seen anteriorly. Otherwise, distribution of tracer is unremarkable throughout the lumbar spine, pelvis and hips. Impression: 1. Osteoblastic process in L4 on the right is likely related to post-operative changes given history of laminectomy and fusion as well as disc spacers. Without focal tracer activity on flow and blood pool images, is not likely an acute process. 2. No acute osteoblastic process is seen in the lumbar spine, pelvis or hips to suggest an etiology of the patient's buttock pain. Signed by: Dr. Bozena Walsh M.D. on 08/05/2017 7:12 PM
[2017-08-05] MEDS: ZOLPIDEM TARTRATE 10 MG TAB PO PRN (23:22)
[2017-08-06] VITALS (8 sets, daily range): BP systolic 106–180; BP diastolic 73–95
[2017-08-06] MEDS: HYDROMORPHONE 2MG/ML INJ IV PRN (02:55)
[2017-08-06] MEDS: ONDANSETRON HCL 4 MG ORAL DISINTEGRATING TAB PO PRN (02:55)
[2017-08-06] MEDS: AZTREONAM 1 GM VIAL IV SCH ×3 (03:15→16:57)
[2017-08-06] MEDS: SODIUM CHLORIDE 0.9% 1000ML 1,000 ML IV SCH ×4 (03:16→22:00)
[2017-08-06] MEDS: HYDROCODONE/APAP 10MG-325MG TAB PO PRN (06:19)
[2017-08-06] MEDS: VANCOMYCIN 1GM/NS 250 ML 250 ML IV SCH ×2 (06:19→16:57)
[2017-08-06] MEDS: FAMOTIDINE 20 MG TAB PO SCH ×2 (07:30→16:30)
--- NOTE | 2017-08-06 07:38 | Progress Note ---
DATE: August 06, 2017 TIME: 7:04 a.m. OVERNIGHT: No events. Pain is better controlled, but still having severe pain in the right hip intermittently. REVIEW OF SYSTEMS: Denies any chest pain. VITAL SIGNS: Reviewed. PHYSICAL EXAMINATION GENERAL: A tired-appearing woman resting in bed. HEENT: Anicteric. CARDIOVASCULAR: Normal S1 and S2. LUNGS: Moderate breath sounds. ABDOMEN: Soft, nontender and nondistended. She has a midline surgical scar on the anterior abdominal wall. EXTREMITIES: She has no edema. Right hip is minimally tender to palpation. PSYCHIATRIC: Flat affect. NEUROLOGICAL: Alert and oriented times 3. LABS: Reviewed. MEDICATIONS: Reviewed. ASSESSMENT AND PLAN: A 62-year-old woman. 1. Severe intractable right hip pain. 2. Moderate right and mild left foraminal stenosis at L2-L3. 3. Severe degenerative disk disease at T10 to L1 with areas of moderate stenosis. 4. Acute kidney injury. 5. Dehydration. 6. Physical deconditioning. 7. Hypertensive urgency. PLAN 1. Continue pain management by pain specialist. 2. Follow up MRI imaging. 3. Continue rehydration. 4. All cultures remain negative. 5. Continue IV vancomycin and IV aztreonam. 6. Continue Keppra. 7. Continue blood pressure control. Job#: [id number]
[2017-08-06] MEDS: PANTOPRAZOLE SOD 40 MG TABEC PO SCH (09:00)
[2017-08-06] MEDS: PILOCARPINE HCL 5 MG PO SCH ×3 (09:00→21:00)
[2017-08-06] MEDS: LEVETIRACETAM 500 MG TAB PO SCH ×2 (09:00→16:57)
[2017-08-06] MEDS: ESTRADIOL 1 MG TAB PO SCH (09:00)
[2017-08-06] MEDS: HEPARIN SOD (PORCINE) 5,000 UNIT/ML VIAL SC SCH ×2 (09:00→21:00)
[2017-08-06] MEDS: HYDROCHLOROTHIAZIDE 25 MG TAB PO SCH (09:00)
[2017-08-06] MEDS: MORPHINE SULFATE 2 MG/ML SYR IV PRN (20:25)
[2017-08-06] MEDS: ZOLPIDEM TARTRATE 10 MG TAB PO PRN (23:37)
[2017-08-07] MEDS: AZTREONAM 1 GM VIAL IV SCH ×3 (01:07→18:35)
[2017-08-07] MEDS: MORPHINE SULFATE 2 MG/ML SYR IV PRN ×3 (01:08→09:40)
[2017-08-07 04:30] VITALS: BP 148/71
[2017-08-07] MEDS: HYDROMORPHONE 2MG/ML INJ IV PRN ×3 (06:15→21:45)
[2017-08-07] MEDS: ONDANSETRON HCL 4 MG ORAL DISINTEGRATING TAB PO PRN (06:15)
[2017-08-07] MEDS: VANCOMYCIN 1GM/NS 250 ML 250 ML IV SCH ×3 (06:36→18:45)
[2017-08-07] MEDS ORDERED: LIDOCAINE HCL (LTA) 4 ML SOLN ONE (07:30)
[2017-08-07] MEDS: FAMOTIDINE 20 MG TAB PO SCH ×2 (07:30→17:17)
[2017-08-07] MEDS ORDERED: ACETAMINOPHEN 1000 MG/100 ML 100 ML IV ONE (07:30)
[2017-08-07 07:42] VITALS: BP 165/75
[2017-08-07 08:40] LABS: BASOPHILS % 0.2 % (0.0-1.0); EOSINOPHILS # (AUTO) 0.3 (0.0-0.4); EOSINOPHILS % 6.8 % (0.0-6.0); HEMATOCRIT 28.6 % (34.2-44.1); HEMOGLOBIN 9.1 g/dL (12.0-16.0); LYMPHOCYTES # (AUTO) 2.8 (1.0-3.2); LYMPHOCYTES % 55.9 % (18.0-39.1); MEAN CORPUSCULAR HEMOGLOBIN 28.1 pg (28-32); MEAN CORPUSCULAR HGB CONC 31.8 g/dL (31-35); MEAN CORPUSCULAR VOLUME 88.3 fL (81-99); MONOCYTES # (AUTO) 0.4 (0.2-0.8); MONOCYTES % 7.4 % (4.4-11.3); NEUTROPHILS # (AUTO) 1.4 (2.1-6.9); NEUTROPHILS % 28.5 % (38.7-80.0); PLATELET COUNT 191 x10e3/uL (140-360); RED BLOOD COUNT 3.24 x10e6/uL (3.6-5.1)
[2017-08-07 08:52] LABS: ANION GAP 11.5 mmol/L (8-16); BLOOD UREA NITROGEN 6 mg/dL (7-26); BUN/CREATININE RATIO 8 (6-25); CALCIUM 8.4 mg/dL (8.4-10.2); CARBON DIOXIDE 25 mmol/L (22-29); CHLORIDE 111 mmol/L (98-107); EST GLOMERULAR FILTRATION RATE > 60 ML/MIN (60-); GLUCOSE 78 mg/dL (74-118); POTASSIUM 3.5 mmol/L (3.5-5.1); SODIUM 144 mmol/L (136-145)
[2017-08-07] MEDS: PILOCARPINE HCL 5 MG PO SCH ×3 (09:00→21:00)
[2017-08-07] MEDS: HEPARIN SOD (PORCINE) 5,000 UNIT/ML VIAL SC SCH ×2 (09:00→21:00)
[2017-08-07] MEDS: LEVETIRACETAM 500 MG TAB PO SCH ×2 (09:40→17:17)
[2017-08-07] MEDS ORDERED: VANCOMYCIN 1GM/NS 250 ML 250 ML IV SCH (10:00)
[2017-08-07] MEDS: SODIUM CHLORIDE 0.9% 1000ML 1,000 ML IV SCH (10:06)
[2017-08-07 11:35] VITALS: BP 132/65
[2017-08-07] MEDS ORDERED: THROMBIN FOR SOLN 5,000 UNIT VIAL ONE (11:42)
[2017-08-07] MEDS ORDERED: BUPIVACAINE 0.5%/EPI 30 ML SDV INJ ONE (11:42)
[2017-08-07] MEDS ORDERED: BACITRACIN 50,000 UNIT VIAL ONE (11:43)
[2017-08-07] MEDS: LACTATED RINGER'S 1,000 ML IV SCH ×2 (14:29→22:49)
[2017-08-07] MEDS ORDERED: OXYCODONE/ACETAMINOPHEN 5-325 1 EACH TABLET PO PRN (14:30)
[2017-08-07] MEDS ORDERED: ACETAMINOPHEN 325 MG TAB PO PRN (14:30)
[2017-08-07] MEDS ORDERED: GELATIN SPONGE SZ 100 TOP ONE (14:30)
[2017-08-07] MEDS ORDERED: MAGNESIUM/ALUMINUM/SIMETHICONE 30 ML UDC PO PRN (14:30)
[2017-08-07] MEDS ORDERED: PROMETHAZINE HCL (IM) 25 MG/ML VIAL IM PRN (14:30)
[2017-08-07] MEDS ORDERED: CARISOPRODOL 350 MG TAB PO PRN (14:30)
[2017-08-07] MEDS ORDERED: ONDANSETRON HCL INJ 2 MG/ML VIAL IV PRN (14:30)
[2017-08-07] MEDS ORDERED: FENTANYL CITRATE/PF 100MCG/2 ML INJ ONE ×2 (14:38→18:53)
[2017-08-07] MEDS ORDERED: MORPHINE SULFATE 2 MG/ML SYR IV PRN (14:45)
[2017-08-07] MEDS ORDERED: LABETALOL HCL 0 ML ONE (14:50)
[2017-08-07] MEDS ORDERED: ONDANSETRON HCL 4 MG ORAL DISINTEGRATING TAB SL PRN (15:00)
--- NOTE | 2017-08-07 16:15 | Operative Report ---
DATE OF PROCEDURE: August 07, 2017 PREOPERATIVE DIAGNOSIS: Extruded L3-4 interbody bone graft into the L3 neural foramen with severe right L3 radiculopathy. POSTOPERATIVE DIAGNOSIS: Extruded L3-4 interbody bone graft into the L3 neural foramen with severe right L3 radiculopathy. PROCEDURE: 1. Exploration of lumbar fusion. 2. Redo right L3-4 completion facetectomy and removal of extruded interbody bone graft from the L3 neural foramen for decompression of the L3 nerve root. ANESTHESIA: General. INDICATIONS: The patient is a 62-year-old woman who underwent L3-4 and L4-5 transforaminal lumbar interbody fusion and pedicle screw fixation by me 2 months ago with good results. She now presents with a 1 week history of severe acute right L3 radiculopathy with numbness, weakness and severe pain in the right L3 distribution and unable to walk. She was admitted as an inpatient to [facility] for pain management. A CT of the lumbar spine was performed. The patient could not tolerate lying down in an MRI. This CT reveals extrusion of the interbody bone graft from the L3-4 disk space into the right L3 neural foramen. The radiologist has failed to mention this in her report. I have placed a call to the radiologist to amend the report. The patient is being taken to the operating room for a re-exploration of her fusion and removal of the extruded bone graft and decompression of the L3 nerve root. PROCEDURE: After the induction of general anesthesia, the patient was placed on the operating table in prone position over a Po frame. The lumbar region was prepped and draped in sterile fashion. The fluoroscopic C-arm was positioned in cross-table lateral orientation. A midline incision was created overlying her previous incision scar, and dissection was carried out towards the right side to expose the right L3 and the L4 pedicle screws. Under lateral fluoroscopy, the superior margin of the L4 pedicle was followed down to the residual L3-4 facet joint. The residual L3-4 facet joint was drilled down just superior to the L4 pedicle. The lateral margin of the L4 nerve root and dural sac was dissected free of the scar tissue and exposed. The disk space was exposed just above the L4 pedicle. The extruded disk material immediately came into view, filling the inferior margin of the L3-4 neural foramen. This was mobilized with a [place] 4 instrument and removed in a piecemeal fashion until it was completely resected. This was continued into the L3-4 disk space until the posterior margin of the interbody bone graft was visualized. This procedure was performed with intraoperative EMG monitoring and, throughout the procedure, stimulation was carried out in order to avoid any injury to the L3 and L4 nerve roots during the dissection of the scar. In fact, no adverse EMG recordings were obtained at any point during the procedure. After satisfactory decompression had been achieved, the wound was irrigated with Bacitracin solution and closed with 0 and 2-0 Vicryl sutures. The skin was closed with 3-0 Vicryl sutures and rosana. A dressing was applied. The patient was awakened, extubated and taken to the postanesthesia care unit in stable condition. No intraoperative complications were encountered. Estimated blood loss was 10 mL. Job#: [id number] EV
[2017-08-07 16:31] VITALS: BP 159/76
--- NOTE | 2017-08-07 17:04 | Consultation ---
DATE OF CONSULTATION: August 06, 2017 REASON FOR CONSULTATION: Severe right leg pain. HISTORY OF PRESENT ILLNESS: The patient is a 62-year-old woman with rheumatoid disease and chronic pain disorder, who is well known to me. She underwent L3-4 and L4-5 bilateral decompressive laminectomy and transforaminal lumbar interbody fusion and pedicle screw fixation about 6 weeks ago for treatment of spondylolisthesis and spinal stenosis. She did well with that surgery. She now presents with a 1-week history of sudden onset of severe excruciating pain radiating from the right buttock to the right anterior thigh, but not below the knee. She has developed numbness in the right anterior thigh and feels weak in her hip and knee. The pain is exacerbated by standing. She denies any pain in the left leg. She denies any midline low back pain of significance. PHYSICAL EXAMINATION: The patient is sitting on the edge of her bed. Straight leg raising is positive at 30 degrees. Femoral stretch test is positive on the right side. Motor strength is diminished in the right iliopsoas and quadriceps graded as 4/5. Sensation to light touch and pinprick is markedly diminished over the right anterior thigh. The diameter of the right thigh appears to be smaller than that of the left thigh. The patellar tendon reflex is absent on the right and 1+ on the left. The patient could not tolerate an MRI because she cannot lie flat on her back for any significant period of time. CT of the lumbar spine was reviewed. The pedicle screws are in excellent position. The interbody implants are in excellent position. However, she has developed extrusion of the bone graft that had been placed in the L3-4 disk space, into the right L3 neural foramen. Although the L3 nerve root cannot be directly visualized on the CT, the bone graft is precisely where the nerve root would be running and is precisely concordant with the pattern of her pain, numbness, and weakness. IMPRESSION: Severe acute right L3 radiculopathy due to extrusion of the L3-4 interbody bone graft into the L3 neural foramen. The hardware and interbody implants remain in good position. RECOMMENDATIONS: I will take the patient back to surgery tomorrow for exploration of her fusion and removal of the extruded bone graft. I plan to leave the hardware in place. The risks, benefits, and alternatives were explained to the patient and her in great detail. She fully understands all the issues including the possibility of persistent pain, numbness, and weakness and gives the informed consent to proceed with surgery. Job#: [id number]
[2017-08-07] MEDS: PANTOPRAZOLE SOD 40 MG TABEC PO SCH (17:17)
[2017-08-07] MEDS: HYDROCHLOROTHIAZIDE 25 MG TAB PO SCH (17:17)
[2017-08-07] MEDS: ESTRADIOL 1 MG TAB PO SCH (17:17)
[2017-08-07] MEDS ORDERED: DESFLURANE 240 ML BTL INH ONE (18:14)
[2017-08-07] MEDS ORDERED: ONDANSETRON HCL INJ 2 MG/ML VIAL ONE (18:14)
[2017-08-07] MEDS ORDERED: LIDOCAINE HCL 2% JELLY 5 ML TUBE ONE (18:14)
[2017-08-07] MEDS ORDERED: NEOSTIGMINE 5 MG/5ML SYR ONE (18:14)
[2017-08-07] MEDS ORDERED: DEXAMETHASONE SOD PHOS INJ 4 MG/ML VIAL ONE (18:14)
[2017-08-07] MEDS ORDERED: ROCURONIUM BROMIDE 10 MG/ML 5ML VIAL ONE (18:14)
[2017-08-07] MEDS ORDERED: SEVOFLURANE INHAL SOLN 250 ML PEN BTL ONE (18:14)
[2017-08-07] MEDS ORDERED: PROPOFOL IV EMULSION 10 MG/ML 20 ML VIAL ONE (18:14)
[2017-08-07] MEDS ORDERED: LIDOCAINE HCL 2% LOCAL INJ 5 ML SDV VIAL INJ ONE (18:14)
[2017-08-07] MEDS ORDERED: GLYCOPYRROLATE INJ 1MG/ 5 ML SYR ONE (18:14)
[2017-08-07] MEDS ORDERED: MIDAZOLAM HCL 2 MG/2 ML VIAL ONE (18:53)
[2017-08-07 20:00] VITALS: BP 159/72
[2017-08-07] MEDS ORDERED: ZOLPIDEM TARTRATE 5 MG TAB PO PRN (21:00)
[2017-08-07] MEDS: ZOLPIDEM TARTRATE 10 MG TAB PO PRN (23:05)
[2017-08-08] VITALS: BP 129/76
[2017-08-08] MEDS: VANCOMYCIN 1GM/NS 250 ML 250 ML IV SCH ×2 (01:06→06:45)
[2017-08-08] MEDS: AZTREONAM 1 GM VIAL IV SCH ×2 (01:30→09:19)
[2017-08-08] MEDS: HYDROMORPHONE 2MG/ML INJ IV PRN ×3 (02:03→11:10)
[2017-08-08 04:00] VITALS: BP 134/50
[2017-08-08] MEDS ORDERED: CARISOPRODOL350 MG PO (06:55)
[2017-08-08] MEDS ORDERED: GABAPENTIN100 MG PO (06:55)
[2017-08-08] MEDS: LACTATED RINGER'S 1,000 ML IV SCH (07:09)
[2017-08-08] MEDS: FAMOTIDINE 20 MG TAB PO SCH (07:30)
--- NOTE | 2017-08-08 07:38 | Discharge Summary ---
PRINCIPAL DIAGNOSES 1. Intractable right hip pain and back pain. 2. Moderate right and mild left foraminal stenosis at L2-L3. 3. Severe degenerative disk disease at T10-L1 with areas of moderate stenosis. 4. Acute kidney injury. 5. Dehydration. 6. L3 nerve root compression, status post exploratory lumbar fusion and redo of the L3-L4 completion facetectomy and removal of extruded interbody bone graft from the L3 neural foramen for decompression of the L3 nerve root. 7. Physical deconditioning. 8. Hypertensive urgency. 9. Osteoblastic process at the L4 on the right, likely postoperative changes seen on bone scan. SECONDARY DIAGNOSIS: Hypertension. CHIEF COMPLAINT: Right hip and right back pain. HISTORY OF PRESENT ILLNESS: A 62-year-old woman with severe right hip and right back pain. Refer to the H and P for further details. HOSPITAL COURSE: The patient had intractable right hip and back pain. Underwent imaging which showed L2-L3 foraminal stenosis. The patient had severe degenerative disk disease at T10-L1. Underwent bone scan imaging. Dr. Villareal performed exploratory lumbar fusion with redo of the right L3-L4 completion facetectomy and removal of the extruded interbody bone graft from the L3 neural foramen for decompression of the L3 nerve root. The patient was also treated for hypertensive urgency and acute kidney injury with IV fluids for which the acute kidney injury resolved. The patient is doing better and currently appropriate for discharge and follow up. DISCHARGE MEDICATIONS: Per electronic medical record and include pain medication of Allamuchy, as well as muscle spasm medication of Soma. FOLLOWUP 1. Primary care doctor in [address] Villareal in 7-10 days. CONDITION ON DISCHARGE: Stable and improving. DISCHARGE LOCATION: Home with physical therapy. KATE BARRIENTOS MD Job#: [id number] RI
[2017-08-08 08:01] VITALS: BP 132/60
[2017-08-08] MEDS ORDERED: NORCO 7.5-3251 EACH PO (09:00)
[2017-08-08] MEDS: PILOCARPINE HCL 5 MG PO SCH (09:00)
[2017-08-08] MEDS: LEVETIRACETAM 500 MG TAB PO SCH (09:19)
[2017-08-08] MEDS: ESTRADIOL 1 MG TAB PO SCH (09:19)
[2017-08-08] MEDS: PANTOPRAZOLE SOD 40 MG TABEC PO SCH (09:19)
[2017-08-08] MEDS: HYDROCHLOROTHIAZIDE 25 MG TAB PO SCH (09:19)
[2017-08-08 09:23] VITALS: BP 132/60
--- NOTE | 2017-08-08 11:22 | Progress Note ---
DATE: August 07, 2017 TIME: 7 a.m. OVERNIGHT: No events. Pain persists. REVIEW OF SYSTEMS: Denies dizziness. PHYSICAL EXAMINATION VITAL SIGNS: Reviewed. GENERAL: A tired-appearing female resting in bed. HEENT: Anicteric. CARDIOVASCULAR: Normal S1 and S2. LUNGS: Moderate breath sounds. ABDOMEN: Soft, nontender and nondistended. She has a midline surgical scar. EXTREMITIES: No edema or calf tenderness. NEUROLOGICAL: Alert and oriented times 3. Moving all extremities. SKIN: Dry. PSYCHIATRIC: Flat affect. LABS: Reviewed. MEDICATIONS: Reviewed. ASSESSMENT: A 62-year-old woman with: 1. Severe intractable right hip pain. 2. Moderate right and mild left foraminal stenosis at L2-l3. 3. Severe degenerative disk disease at T10-L1. 4. Acute kidney injury. 5. Dehydration. 6. Physical deconditioning. 7. Hypertensive urgency. PLAN 1. Continue pain control. 2. Continue to follow up bone scan. 3. Possible surgery today. 4. Continue other medication regimen. Job#: [id number] AK
== END 2017-08-08 11:25 | disposition home health service (06) | DRG 516 ==
LOC: ER 14:16 → ERHOLD 18:06 → MED/SURG3 20:37 → MED/SURG 08-07 15:40
PROVIDERS: ADMIT Internal Medicine; ATTEND Internal Medicine
PROC: 01NB0ZZ Release Lumbar Nerve, Open Approach (ICD-10-PCS; principal; 2017-08-07 12:53)
DX: T84.398A Other mechanical complication of other bone devices, implants and grafts, initial encounter (principal); N17.9 Acute kidney failure, unspecified; M54.16 Radiculopathy, lumbar region; E86.0 Dehydration; I16.0 Hypertensive urgency; Z98.1 Arthrodesis status; K21.9 Gastro-esophageal reflux disease without esophagitis; G47.00 Insomnia, unspecified; I25.2 Old myocardial infarction; I10 Essential (primary) hypertension; E78.5 Hyperlipidemia, unspecified; M35.00 Sjogren syndrome, unspecified; G89.4 Chronic pain syndrome; Y83.2 Surgical operation with anastomosis, bypass or graft as the cause of abnormal reaction of the patient, or of later complication, without mention of misadventure at the time of the procedure
CPT/HCPCS: 36415; 71045; 72100; 72131; 73522; 77003; 78315; 80048; 80053; 80202; 81001; 82550; 82553; 83605; 84484; 85025; 85610; 85651; 85730; 86140; 86850; 86900; 87040; 87071; 87086; 87205; 88304; 93005; 93971; 96361; 99284; A9503; J1100; J1644; J1940; J2001; J2250; J2270; J2405; J3370; J3486; J7030

== ENCOUNTER → 2019-08-27 | Outpatient (CLI) | payer MEDICARE, OTHER ==
[~2019-08-27] MED LIST changes: +CARISOPRODOL350 MG PO; +GABAPENTIN100 MG PO
== END ==
LOC: RAD 09:22
PROVIDERS: ATTEND Internal Medicine
DX: R07.9 Chest pain, unspecified (principal)
CPT/HCPCS: 93306